=== PATIENT | female | born 1960 | race Caucasian/White ===

== ENCOUNTER 2019-10-16 15:44 | Emergency (ER) | payer MEDICARE, OTHER ==
--- OUTSIDE RECORDS SUMMARY | 2019-10-16 15:50 | XMS REPORT ---
:1960 [facility] Address [address] [place] [address] [address]. [address] [place] [address] Care Team Providers Name Role Phone Unavailable Unavailable Unavailable Problems This patient has no known problems. Allergies, Adverse Reactions, Alerts This patient has no known allergies or adverse reactions. Medications This patient has no known medications. Encounters Start End Encounter Admission Attending Care Care Encounter Date/Time Date/Time Type Type Clinicians Facility Department ID 2019-05-15 Outpatient [facility] [id number] 10:24:22 2019-10-01 2019-10-01 [facility] [id number] 10:41:00 10:41:00 2019-09-24 2019-09-24 Outpatient [facility] [id number] 09:51:00 09:51:00 2019-08-20 2019-08-20 Outpatient [facility] [id number] 10:21:00 10:21:00 2019-08-18 2019-08-18 Outpatient [facility] [id number] 04:47:00 04:47:00 2019-07-25 2019-07-25 Outpatient [facility] [id number] 09:16:00 09:16:00 2019-06-19 2019-06-19 Outpatient [facility] [id number] 09:52:00 09:52:00 2019-06-16 2019-06-16 Outpatient [facility] [id number] 05:09:00 05:09:00 2019-05-14 2019-05-14 Outpatient [facility] [id number] 09:53:00 09:53:00 2019-05-06 2019-05-06 Outpatient [facility] [id number] 10:01:00 10:01:00 2019-04-02 2019-04-02 [facility] [id number] 04:46:00 04:46:00 2019-03-18 2019-03-18 Outpatient [facility] [id number] 12:37:00 12:37:00 2019-03-12 2019-03-12 Outpatient [facility] [id number] 10:21:00 10:21:00 2019-02-12 2019-02-12 Outpatient [facility] [id number] 09:23:00 09:23:00 2019-01-31 2019-01-31 Outpatient [facility] [id number] 04:50:00 04:50:00 2019-01-29 2019-01-29 Outpatient [facility] [id number] 10:14:00 10:14:00 2018-10-22 2018-10-22 Outpatient [facility] [id number] 11:15:00 11:15:00 2018-08-28 2018-08-28 Emergency E [facility] [id number] 16:04:00 16:04:00
--- OUTSIDE RECORDS SUMMARY | 2019-10-16 15:50 | XMS REPORT | Summary of Care ---
:1960 Author Name MAIK EATON M.D. 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 Start : 30-May-2017 Active Synthroid 50 MCG Oral Tablet TAKE 1 TABLET DAILY. Refills: 0 Active Avastin SOLN every two weeks Refills: 0 Active 16 ML Vial Cabometyx 40 MG Oral Tablet TAKE 1 TABLET BY MOUTH ONCE DAILY Refills: 0 Active levETIRAcetam 1000 MG Oral Tablet TAKE 2 TABLET TWICE DAILY Quantity: 120 Refills: 11 MAIK EATON M.D.Active Vimpat 150 MG Oral Tablet TAKE 1 TABLET TWICE DAILY DIRECTED. Quantity: 60 Refills: 5 MAIK EATON M.D.Active LORazepam 1 MG Oral Tablet TAKE 1 TABLET Once PRN seizure clusters - may repeat once; no more than 2 tablets per day Quantity: 15 Refills: 3 MAIK EATON M.D. Start : 07-Nov-2018 Active Vimpat 200 MG Oral Tablet TAKE 1 TABLET TWICE DAILY DIRECTED. Quantity: 60 Refills: 5 MAIK EATON M.D. Start : 28-Jan-2019 Active Allergies and Adverse Reactions Name Dates Details No Known Drug Allergies (Allergy) Status: Active Procedures Procedure Dates Details Procedures not documented Immunization Name Dates Details Immunizations not documented Social History Name Dates Details - Status: Name Dates Details Former smoker Vital Signs Date Test Result Details No Known Vitals to report Results Date Description Value Details Results not documented Plan of Care Name Dates Details Planned Observations Planned Goals not documented Interventions Provided Medication ChangesVimpat 200 MG Oral Tablet - Start Instructions Name Dates Details Instructions not documented Encounters Appointment; Jerad Stephen M.D. On: 07-Feb-2017 13:15 Encounter Diagnosis: Problem not documented Appointment; Jerad Stephen M.D. On: 14-Feb-2017 10:15 Encounter Diagnosis: Problem not documented Appointment; Jerad Stephen M.D. On: 28-Feb-2017 10:45 Encounter Diagnosis: Problem not documented Appointment; Jerad Stephen M.D. On: 14-Mar-2017 10:45 Encounter Diagnosis: Problem not documented Appointment; Jerad Stephen M.D. On: 04-Apr-2017 14:15 Encounter Diagnosis: Problem not documented Appointment; Jerad Stephen M.D. On: 18-Apr-2017 11:30 Encounter Diagnosis: Problem not documented Appointment; Jerad Stephen M.D. On: 02-May-2017 11:00 Encounter Diagnosis: Problem not documented Appointment; Jerad Stephen M.D. On: 16-May-2017 12:00 Encounter Diagnosis: Problem not documented Appointment; LEONCIO MALDONADO M.D. On: 30-May-2017 11:30 Encounter Diagnosis: Problem not documented Appointment; REBEKAH BOYLE On: 30-May-2017 15:30 Encounter Diagnosis: Problem not documented Appointment; CRISTOFER PATEL On: 30-May-2017 16:00 Encounter Diagnosis: Problem not documented Appointment; TERESA NOLAN M.D. On: 08-Jun-2017 17:40 Encounter Diagnosis: Problem not documented Appointment; LEONCIO MALDONADO M.D. On: 13-Jun-2017 10:30 Encounter Diagnosis: Problem not documented Appointment; LEONCIO MALDONADO M.D. On: 27-Jun-2017 11:45 Encounter Diagnosis: Problem not documented Appointment; Jerad Stephen M.D. On: 11-Jul-2017 11:30 Encounter Diagnosis: Problem not documented Appointment; Jerad Stephen M.D. On: 25-Jul-2017 12:00 Encounter Diagnosis: Problem not documented Appointment; JAMES GALAVIZ M.D. On: 25-Jul-2017 13:15 Encounter Diagnosis: Problem not documented Appointment; Jerad Stephen M.D. On: 08-Aug-2017 12:00 Encounter Diagnosis: Problem not documented Appointment; LEONCIO MALDONADO M.D. On: 22-Aug-2017 11:30 Encounter Diagnosis: Problem not documented Appointment; MELISSA, NON-INVASIVE On: 29-Aug-2017 14:00 Encounter Diagnosis: Problem not documented Appointment; Jerad Stephen M.D. On: 05-Sep-2017 9:00 Encounter Diagnosis: Problem not documented Appointment; Jerad Stephen M.D. On: 19-Sep-2017 12:00 Encounter Diagnosis: Problem not documented Appointment; LEONCIO MALDONADO M.D. On: 03-Oct-2017 9:00 Encounter Diagnosis: Problem not documented Appointment; TERESA NOLAN M.D. On: 17-Oct-2017 14:20 Encounter Diagnosis: Problem not documented Appointment; Jerad Stephen M.D. On: 18-Oct-2017 11:00 Encounter Diagnosis: Problem not documented Appointment; Jerad Stephen M.D. On: 31-Oct-2017 11:00 Encounter Diagnosis: Problem not documented Appointment; Jerad Stephen M.D. On: 14-Nov-2017 10:15 Encounter Diagnosis: Problem not documented Appointment; Jerad Stephen M.D. On: 28-Nov-2017 10:00 Encounter Diagnosis: Problem not documented Appointment; Jerad Stephen M.D. On: 12-Dec-2017 10:30 Encounter Diagnosis: Problem not documented Appointment; Jerad Stephen M.D. On: 26-Dec-2017 11:00 Encounter Diagnosis: Problem not documented Appointment; Jerad Stephen M.D. On: 09-Jan-2018 10:15 Encounter Diagnosis: Problem not documented Appointment; Jerad Stephen M.D. On: 24-Jan-2018 9:15 Encounter Diagnosis: Problem not documented Appointment; Jerad Stephen M.D. On: 07-Feb-2018 9:30 Encounter Diagnosis: Problem not documented Appointment; Jerad Stephen M.D. On: 20-Feb-2018 11:00 Encounter Diagnosis: Problem not documented Appointment; Jerad Stephen M.D. On: 06-Mar-2018 12:15 Encounter Diagnosis: Problem not documented Appointment; LEONCIO MALDONADO M.D. On: 20-Mar-2018 11:00 Encounter Diagnosis: Problem not documented Appointment; LEONCIO MALDONADO M.D. On: 03-Apr-2018 10:00 Encounter Diagnosis: Problem not documented Appointment; LEONCIO MALDONADO M.D. On: 17-Apr-2018 10:30 Encounter Diagnosis: Problem not documented Appointment; LEONCIO MALDONADO M.D. On: 01-May-2018 10:30 Encounter Diagnosis: Problem not documented Appointment; LEONCIO MALDONADO M.D. On: 15-May-2018 9:00 Encounter Diagnosis: Problem not documented Appointment; LEONCIO MALDONADO M.D. On: 22-May-2018 11:00 Encounter Diagnosis: Problem not documented Appointment; LEONCIO MALDONADO M.D. On: 05-Jun-2018 10:30 Encounter Diagnosis: Problem not documented Appointment; LEONCIO MALDONADO M.D. On: 12-Jun-2018 11:00 Encounter Diagnosis: Problem not documented Appointment; LEONCIO MALDONADO M.D. On: 26-Jun-2018 13:00 Encounter Diagnosis: Problem not documented Appointment; ELISA MARRUFO M.D. On: 17-Jul-2018 9:30 Encounter Diagnosis: Problem not documented Appointment; ELISA MARRUFO M.D. On: 28-Aug-2018 10:00 Encounter Diagnosis: Problem not documented Appointment; ELISA MARRUFO M.D. On: 22-Oct-2018 11:30 Encounter Diagnosis: Problem not documented Appointment; MAIK EATON M.D. On: 04-Nov-2018 9:30 Encounter Diagnosis: Problem not documented Appointment; MAIK EATON M.D. On: 07-Nov-2018 13:00 Encounter Diagnosis: Problem not documented Appointment; ELISA MARRUFO M.D. On: 20-Nov-2018 10:30 Encounter Diagnosis: Problem not documented
[2019-10-16] MEDS ORDERED: FENTANYL CITR 100 MCG/2 ML ONE ×2 (17:16→17:22)
[2019-10-16 17:37] LABS: ALT/SGPT 18 U/L (12-78); AST/SGOT 23 U/L (15-37); Albumin 2.6 g/dL (3.4-5.0); Alkaline Phosphatase 86 U/L (45-117); BUN Blood Urea Nitrogen 14 mg/dL (7-18); Bicarbonate 24 mmol/L (21-32); Bilirubin Direct < 0.1 mg/dL (0-0.2); Bilirubin Total 0.2 mg/dL (0.2-1.0); Creatine Phosphokinase 75 U/L (26-192); Glucose Level 94 mg/dL (74-106); Magnesium 1.9 mg/dL (1.8-2.4); Protein, Total 7.2 g/dL (6.4-8.2); Sodium Level 135 mmol/L (136-145)
[2019-10-16 18:08] LABS: Absolute Lymphocytes (CBC) 2.2 K/uL (0.7-4.9); Basophils % 1.4 % (0-1.3); Lymphocytes % 17.7 % (15.3-44.8)
[2019-10-16 18:10] LABS: MPV 7.8 fL (7.6-11.3); RBC Red Blood Cell Count 2.82 M/uL (3.86-4.86)
[2019-10-16 18:46] LABS: Folic Acid, (Folate) 16.2 ng/mL (3.1-17.5)
[2019-10-16 18:56] LABS: Blood Morphology Comment NOTED (NOT SEEN); Platelet Estimate ADEQ; White Blood Cell Scan OK
[2019-10-16 19:04] LABS: Macrocytosis 1+; Polychromasia 1+
--- NOTE | 2019-10-16 19:04 | ER ---
Nurse's Notes [facility] Name: Brenda Shannon Age: 59 yrs Sex: Female : 1960 Arrival Date: 10/16/2019 Time: 15:48 Bed 30 Private MD: Odette Smith H Diagnosis: Acute pain, not elsewhere classified Presentation: 10/15 15:53 Chief complaint: Patient states: Has renal CA. Doctor stopped all medications due to ll1 side effects. Only taking BP and thyroid pills now.. She has had pain all over her body for 3 days. No fever. No cough/congestion. Coronavirus screen: The patient has NOT traveled to a country currently being monitored by the CDC within the last 14 days. Ebola Screen: Patient denies travel to an Ebola-affected area in the 21 days before illness onset. Initial Sepsis Screen: Does the patient meet any 2 criteria? No. Patient's initial sepsis screen is negative. Risk Assessment: Do you want to hurt yourself or someone else? Patient reports no desire to harm self or others. 15:53 Method Of Arrival: Ambulatory [facility] 15:53 Acuity: ADOLFO 3 ll1 17:39 Initial Sepsis Screen: Does the patient have a suspected source of infection? No. vc Patient's initial sepsis screen is negative. Triage Assessment: 17:24 General: Appears in no apparent distress. comfortable, Behavior is calm, cooperative. ls4 Pain: Complains of pain in "all over" Pain currently is 10 out of 10 on a pain scale. Aggravated by Noted to be pt in no apparent distress. moves easily with no distress. Neuro: No deficits noted. Cardiovascular: No deficits noted. Respiratory: No deficits noted. GI: No deficits noted. No signs and/or symptoms were reported involving the gastrointestinal system. : No deficits noted. No signs and/or symptoms were reported regarding the genitourinary system. Derm: No deficits noted. No signs and/or symptoms reported regarding the dermatologic system. Musculoskeletal: No deficits noted. No signs and/or symptoms reported regarding the musculoskeletal system. Historical: - Allergies: 15:56 No Known Allergies; ll1 - Home Meds: 15:56 metoprolol tartrate 50 mg Oral tab 1 tab 2 times per day [Active]; ll1 - PMHx: 15:56 Hypertension; ll1 - PSHx: 15:56 None; ll1 - Immunization history:: Flu vaccine is not up to date. - Social history:: Smoking status: Patient denies any tobacco usage or history of. Screenin:00 Abuse screen: Denies threats or abuse. Denies injuries from another. Nutritional ls4 screening: No deficits noted. Tuberculosis screening: No symptoms or risk factors identified. Fall Risk None identified. Assessment: 16:30 General: Appears in no apparent distress. uncomfortable, slender, Behavior is calm, vc cooperative, appropriate for age. Pain: Complains of pain in "whole body". 16:30 Neuro: Level of Consciousness is awake, alert, obeys commands, Oriented to person, vc place, time, situation, Appropriate for age. Cardiovascular: Capillary refill < 3 seconds Patient's skin is warm and dry. Respiratory: Airway is patent Respiratory effort is even, unlabored, Respiratory pattern is regular, symmetrical. GI: Abdomen is flat. : No signs and/or symptoms were reported regarding the genitourinary system. EENT: No signs and/or symptoms were reported regarding the EENT system. Derm: Skin temperature is warm. Musculoskeletal: Circulation, motion, and sensation intact. Range of motion: intact in all extremities. 17:00 Reassessment: Patient and/or family updated on plan of care and expected duration. Pain vc level reassessed. Patient is alert, oriented x 3, equal unlabored respirations, skin warm/dry/pink. 17:48 Reassessment: Patient and/or family updated on plan of care and expected duration. Pain ls4 level reassessed. Patient is alert, oriented x 3, equal unlabored respirations, skin warm/dry/pink. 19:14 Reassessment: Patient appears in no apparent distress at this time. Patient and/or ls4 family updated on plan of care and expected duration. Pain level reassessed. Patient is alert, oriented x 3, equal unlabored respirations, skin warm/dry/pink. Vital Signs: 15:53 BP 165 / 77; Pulse 95; Resp 19; Temp 98.4; Pulse Ox 97% ; Weight 65.77 kg; Height 5 ft. ll1 1 in. (154.94 cm); Pain 10/10; 17:38 BP 156 / 86; Pulse 88; Resp 21; Pulse Ox 98% on R/A; vc 19:14 BP 143 / 78; Pulse 90; Resp 14; Pulse Ox 99% on R/A; Pain 5/10; ls4 15:53 Body Mass Index 27.40 (65.77 kg, 154.94 cm) ll1 ED Course: 15:48 Patient arrived in ED. mr 15:48 Odette Smith DO is Private Physician. mr 15:55 Triage completed. ll1 15:56 Arm band placed on Patient placed in an exam room. ll1 15:58 Ana Flores, RN is Primary Nurse. ls4 16:00 Patient has correct armband on for positive identification. Bed in low position. Call ls4 light in reach. Side rails up X 1. 16:00 No provider procedures requiring assistance completed. ls4 16:13 Valdemar Munguia PA is PHCP. jr8 16:13 Ming Salinas MD is Attending Physician. jr8 17:00 Initial lab(s) drawn, by me, sent to lab. EKG done, by ED staff, reviewed by Valdemar NOVOA. Inserted saline lock: 20 gauge in right antecubital area, using aseptic technique. Blood collected. Oxygen administration via nasal cannula \\T\\ 2L/min. 17:13 Safety checks: Family/friend present: yes. Verbal reassurance given. Door closed. jp3 nurse monitoring on. Pulse ox on. NIBP on. 19:01 Soo SmithBobbyhDO is Referral Physician. jr8 19:14 Patient did not have IV access during this emergency room visit. ls4 Administered Medications: 17:10 Drug: fentaNYL (PF) 25 mcg Route: IVP; Site: right antecubital; vc 17:47 Follow up: Response: No adverse reaction; Marked relief of symptoms ls4 Outcome: 19:03 Discharge ordered by . jr8 19:13 Discharged to home ambulatory, with family. ls4 19:13 Condition: good 19:13 Discharge instructions given to patient, family, Instructed on discharge instructions, follow up and referral plans. medication usage, Demonstrated understanding of instructions, follow-up care, medications. 19:15 Patient left the ED. ls4 Signatures: Isatu Monson mr Valdemar Munguia PA PA jr8 Daniel Vazquez jp3 Ana Flores, RN RN ls4 Karly Loaiza RN RN vc Barbara Johnson RN RN ll1 Corrections: (The following items were deleted from the chart) 15:55 15:53 Acuity: ADOLFO 4 ll1 ll1 17:43 17:40 General: Appears in no apparent distress. uncomfortable, slender, Behavior is vc calm, cooperative, appropriate for age, vc 17:40 Pain: Complains of pain in "whole body" vc vc
--- NOTE | 2019-10-16 19:04 | EDPHYS ---
Physician Documentation [facility] Name: Brenda Shannon Age: 59 yrs Sex: Female : 1960 Arrival Date: 10/16/2019 Time: 15:48 Bed 30 Private MD: Odette Smith H ED Physician Ming Salinas HPI: 10/15 17:50 This 59 yrs old Female presents to ER via Ambulatory with complaints of Pain jr8 All Over. 17:50 Patient stated that she started with diffuse pain all over. Unknown why. Denies trauma. jr8 Denies flu like symptoms. Suppose to be on chemotherapy but had too many side effects so has been off of them for almost 2 weeks. Pain started 3 days ago. Denies starting any other new medications . Severity of symptoms: At their worst the symptoms were moderate in the emergency department the symptoms are unchanged. The patient has not experienced similar symptoms in the past. The patient has not recently seen a physician. Historical: - Allergies: 15:56 No Known Allergies; ll1 - Home Meds: 15:56 metoprolol tartrate 50 mg Oral tab 1 tab 2 times per day [Active]; ll1 - PMHx: 15:56 Hypertension; ll1 - PSHx: 15:56 None; ll1 - Immunization history:: Flu vaccine is not up to date. - Social history:: Smoking status: Patient denies any tobacco usage or history of. ROS: 17:50 Eyes: Negative for injury, pain, redness, and discharge, ENT: Negative for injury, jr8 pain, and discharge, Neck: Negative for injury, pain, and swelling, Cardiovascular: Negative for chest pain, palpitations, and edema, Respiratory: Negative for shortness of breath, cough, wheezing, and pleuritic chest pain, Abdomen/GI: Negative for abdominal pain, nausea, vomiting, diarrhea, and constipation, Back: Negative for injury and pain, MS/Extremity: Negative for injury and deformity, Skin: Negative for injury, rash, and discoloration, Neuro: Negative for headache, weakness, numbness, tingling, and seizure. 17:50 Constitutional: Positive for fatigue. jr8 Exam: 17:50 Eyes: Pupils equal round and reactive to light, extra-ocular motions intact. Lids and jr8 lashes normal. Conjunctiva and sclera are non-icteric and not injected. Cornea within normal limits. Periorbital areas with no swelling, redness, or edema. ENT: Nares patent. No nasal discharge, no septal abnormalities noted. Tympanic membranes are normal and external auditory canals are clear. Oropharynx with no redness, swelling, or masses, exudates, or evidence of obstruction, uvula midline. Mucous membranes moist. Neck: Trachea midline, no thyromegaly or masses palpated, and no cervical lymphadenopathy. Supple, full range of motion without nuchal rigidity, or vertebral point tenderness. No Meningismus. Cardiovascular: Regular rate and rhythm with a normal S1 and S2. No gallops, murmurs, or rubs. Normal PMI, no JVD. No pulse deficits. Respiratory: Lungs have equal breath sounds bilaterally, clear to auscultation and percussion. No rales, rhonchi or wheezes noted. No increased work of breathing, no retractions or nasal flaring. Abdomen/GI: Soft, non-tender, with normal bowel sounds. No distension or tympany. No guarding or rebound. No evidence of tenderness throughout. Back: No spinal tenderness. No costovertebral tenderness. Full range of motion. Skin: Warm, dry with normal turgor. Normal color with no rashes, no lesions, and no evidence of cellulitis. MS/ Extremity: Pulses equal, no cyanosis. Neurovascular intact. Full, normal range of motion. Neuro: Awake and alert, GCS 15, oriented to person, place, time, and situation. Cranial nerves II-XII grossly intact. Motor strength 5/5 in all extremities. Sensory grossly intact. Cerebellar exam normal. Normal gait. Vital Signs: 15:53 BP 165 / 77; Pulse 95; Resp 19; Temp 98.4; Pulse Ox 97% ; Weight 65.77 kg; Height 5 ft. ll1 1 in. (154.94 cm); Pain 10/10; 17:38 BP 156 / 86; Pulse 88; Resp 21; Pulse Ox 98% on R/A; vc 19:14 BP 143 / 78; Pulse 90; Resp 14; Pulse Ox 99% on R/A; Pain 5/10; ls4 15:53 Body Mass Index 27.40 (65.77 kg, 154.94 cm) ll1 MDM: 16:32 Patient medically screened. jr8 19:00 Data reviewed: vital signs, nurses notes, lab test result(s), EKG, radiologic studies, jr8 plain films. Data interpreted: Pulse oximetry: on room air is 98 %. Interpretation: normal. Counseling: I had a detailed discussion with the patient and/or guardian regarding: the historical points, exam findings, and any diagnostic results supporting the discharge/admit diagnosis, lab results, the need for outpatient follow up, a family practitioner, to return to the emergency department if symptoms worsen or persist or if there are any questions or concerns that arise at home. Response to treatment: the patient's symptoms have mildly improved after treatment. ED course: No identifiable cause of pain that she is feeling based on labs and exam. Recommended f/u with PCP. If worse to come back. Family and patient good with this. 19:03 ED course: Patient seemed anxious as well. Family agreed. Will d/c on hydroxizine to [facility] see if that will help. 10/15 16:45 Order name: Basic Metabolic Panel; Complete Time: 17:40 10/15 16:45 Order name: CBC with Diff; Complete Time: 19:05 10/15 16:45 Order name: LFT's; Complete Time: 17:40 10/15 16:45 Order name: Magnesium; Complete Time: 17:40 10/15 16:45 Order name: CK; Complete Time: 17:40 10/15 17:53 Order name: Folic Acid,Serum (folate); Complete Time: 18:52 10/15 16:45 Order name: EKG; Complete Time: 16:47 10/15 16:45 Order name: Cardiac monitoring; Complete Time: 17:04 10/15 16:45 Order name: EKG - Nurse/Tech; Complete Time: 17:04 10/15 16:45 Order name: IV Saline Lock; Complete Time: 17:04 10/15 17:53 Order name: B12; Complete Time: 18:52 10/15 18:56 Order name: CBC Smear Scan; Complete Time: 19:05 [facility] 10/15 16:45 Order name: Labs collected and sent; Complete Time: 17:04 10/15 16:45 Order name: O2 Per Protocol; Complete Time: 17:04 10/15 16:45 Order name: O2 Sat Monitoring; Complete Time: 17:05 jr8 Administered Medications: 17:10 Drug: fentaNYL (PF) 25 mcg Route: IVP; Site: right antecubital; vc 17:47 Follow up: Response: No adverse reaction; Marked relief of symptoms ls4 Disposition: 10/16 17:06 Co-signature as Attending Physician, Ming Salinas MD Did not see or evaluate patient. ps1 Signature for administrative purposes. . Disposition: 10/16/19 19:03 Discharged to Home. Impression: Acute pain, not elsewhere classified. - Condition is Stable. - Discharge Instructions: Pain Without a Known Cause. - Prescriptions for Hydroxyzine HCl 50 mg Oral Tablet - take 1 tablet by ORAL route every 8 hours As needed; 20 tablet. - Medication Reconciliation Form, Thank You Letter, Antibiotic Education, Prescription Opioid Use form. - Follow up: Odette Smith DO; When: 1 - 2 days; Reason: Recheck today's complaints, Continuance of care, Re-evaluation by your physician. - Problem is new. - Symptoms have improved. Signatures: Dispatcher [employer] EDOH Valdemar Munguia PA PA jr8 Ming Salinas MD MD ps1 nAa Flores RN RN ls4 Karly Loaiza RN RN Barbara Fuller RN RN ll1 Corrections: (The following items were deleted from the chart) 10/15 18:56 18:12 Manual Differential ordered. EDOH EDOH 19:15 19:03 10/16/2019 19:03 Discharged to Home. Impression: Acute pain, not elsewhere ls4 classified. Condition is Stable. Forms are Medication Reconciliation Form, Thank You Letter, Antibiotic Education, Prescription Opioid Use. Follow up: Odette Smith; When: 1 - 2 days; Reason: Recheck today's complaints, Continuance of care, Re-evaluation by your physician. Problem is new. Symptoms have improved. jr8
[2019-10-16 19:32] VITALS: TEMP 98.4
[2019-10-16 19:35] VITALS: BP 143/78; O2SAT 99
--- NOTE | 2019-10-17 08:44 | EKG ---
Test Date: 2019-10-16 Test Time: 17:04:52 Corporate Director: [place] MEASUREMENT RESULTS: Intervals: Rate: 94 OH: 168 QRSD: 78 QT: 352 QTc: 440 [place]: P: 53 OH: 168 QRS: 67 T: 61 INTERPRETIVE STATEMENTS: Normal sinus rhythm normal ECG Compared to ECG 06/19/2017 12:26:32 ST (T wave) deviation no longer present Electronically Signed On 10-17-19 08:43:28 CDT by Erasmo Ferguson
== END 2019-10-16 19:15 | disposition home or self-care (01) ==
LOC: ER 15:44
DX: R52 Pain, unspecified (principal); C65.9 Malignant neoplasm of unspecified renal pelvis
CPT/HCPCS: 93005; 85025; 80048; 36415; 83735; 82550; 80076; 82746; 82607; 96374; 99285; J3010 ×2